=== PATIENT | female | born 1980 | race Hispanic/Latino ===

== ENCOUNTER 2020-02-23 12:18 | Outpatient (CLI) | payer OTHER ==
--- NOTE | 2020-02-23 13:36 | MMO ---
Bilateral MAMMO Bilat Screen [facility]. CLINICAL HISTORY: Patient is 39 years old and is seen for screening. The patient has the following family history of breast cancer: maternal grandmother, 60's. VIEWS: The views performed were: bilateral craniocaudal with tomosynthesis and bilateral mediolateral oblique with tomosynthesis. This study has been interpreted with the assistance of computer-aided detection. MAMMOGRAM FINDINGS: There are scattered fibroglandular densities. There are no suspicious masses, suspicious calcifications, or new areas of architectural distortion. IMPRESSION: THERE IS NO MAMMOGRAPHIC EVIDENCE OF MALIGNANCY. A ROUTINE FOLLOW-UP MAMMOGRAM IN 1 YEAR IS RECOMMENDED. THE RESULTS OF THIS EXAM WERE SENT TO THE PATIENT. ACR BI-RADS Category 1 - Negative MAMMOGRAPHY NOTE: 1. A negative mammogram report should not delay a biopsy if a dominant of clinically suspicious mass is present. 2. Approximately 10% to 15% of breast cancers are not detected by mammography. 3. Adenosis and dense breasts may obscure an underlying neoplasm. Reported by: LILIA ALMANZA MD Electonically Signed: [id number]
== END 2020-02-23 12:19 | disposition home or self-care (01) ==
LOC: BICMAMMO 12:18
PROVIDERS: ATTEND Family Medicine
DX: Z12.31 Encounter for screening mammogram for malignant neoplasm of breast (principal); Z80.3 Family history of malignant neoplasm of breast
CPT/HCPCS: 77063; 77067

== ENCOUNTER 2022-10-27 08:35 | Inpatient (IN) | payer BC ==
[2022-10-27] MEDS ORDERED: Iopamidol-370 76% 500 ML MDV (1 ML CHARGE) ONE (09:05)
[2022-10-27] MEDS ORDERED: Morphine 4 MG/ML VIAL ONE (09:12)
[2022-10-27] MEDS ORDERED: Ondansetron PF 4 MG/2 ML Vial ONE (09:12)
[2022-10-27 09:35] LABS: #Basophils 0.1 thou/uL (0.0-0.2); #Eosinphils 0.4 thou/uL (0.0-0.7); #Lymphocytes 2.9 thou/uL (1.20-3.40); #Monocytes 0.6 thou/uL (0.11-0.59); #Neutrophils 7.5 thou/uL (1.40-6.50); %Basophils 0.6 % (0.0-1.0); %Eosinophils 3.8 % (0.0-10.0); %Monocytes 5.4 % (0.0-10.0); %Neutrophils 65.2 % (42.0-75.0); Hemoglobin 14.6 g/dL (12.0-16.0); Mean Corpuscular HGB CONC 33.4 g/dL (32.0-36.0); Mean Corpuscular Hemoglobin 30.9 pg (27.0-31.0); Mean Corpuscular Volume 92.5 fl (78.0-98.0); Mean Platelet Volume 9.2 fL (7.4-10.4); Platelet Count 289 10x3/uL (130-400); RBC Distribution Width 11.9 % (11.5-14.5); Red Blood Cell (RBC) Count 4.74 mill/uL (4.20-5.40); White Blood Cell (WBC) Count 11.5 10x3/uL (4.8-10.8)
[2022-10-27 09:50] LABS: ALT (SGPT) 36 U/L (8-55); AST (SGOT) 29 U/L (5-34); Alkaline Phosphatase 60 U/L (40-110); Anion Gap 13 mmol/L (10-20); BHCG - Serum Negative (NEGATIVE); BUN (Urea Nitrogen) 9 mg/dL (7.0-18.7); Bilirubin, Total 0.4 mg/dL (0.2-1.2); Calc. Creatinine Clearance 0 mL/min (70-130); Calcium 9.4 mg/dL (7.8-10.44); Carbon Dioxide 26 mmol/L (22-29); Chloride 102 mmol/L (98-107); Estimated GFR 105; Globulin 3.5 g/dL (2.4-3.5); Glucose 143 mg/dL (70-105); Lipase 16 U/L (8-78); Magnesium 1.9 mg/dL (1.6-2.6); Potassium 4.2 mmol/L (3.5-5.1); Pregs Control Background? CLEAR/WHITE (CLR/WHITE); Pregs Control Bar Appear? YES (CONTROL BAR); Protein, Total 7.5 g/dL (6.0-8.3); Sodium 137 mmol/L (136-145)
[2022-10-27] MEDS ORDERED: Piperacillin/Tazobactam 4.5 GM VIAL ONE (12:46)
[2022-10-27] MEDS ORDERED: Morphine 2 MG/ML VIAL ONE (13:01)
[2022-10-27 15:49] VITALS: BMI 38.0
[2022-10-27] MEDS: Ondansetron PF 4 MG/2 ML Vial IVP PRN (16:55)
[2022-10-27] MEDS: Piperacillin/Tazobactam 3.375 GM in Sodium Chloride 0.9% 100 ML IVPB SCH (16:55)
[2022-10-27] MEDS: Potassium Chloride 20 MEQ in Lactated Ringer's 1,000 ML IV SCH (16:55)
[2022-10-27] MEDS: Acetaminophen 325 MG TAB PO PRN (16:55)
[2022-10-27] MEDS ORDERED: Piperacillin/Tazobactam 3.375 GM in Sodium Chloride 0.9% 100 ML IVPB SCH (18:00)
[2022-10-27] MEDS: Famotidine/PF 20 mg/2ml Vial SLOW IVP SCH (20:32)
[2022-10-28] MEDS: Piperacillin/Tazobactam 3.375 GM in Sodium Chloride 0.9% 100 ML IVPB SCH ×2 (00:53→08:49)
[2022-10-28] MEDS: Morphine 4 MG/ML VIAL SLOW IVP PRN ×2 (00:55→15:44)
[2022-10-28] MEDS: Potassium Chloride 20 MEQ in Lactated Ringer's 1,000 ML IV SCH ×2 (04:36→18:06)
[2022-10-28 07:21] LABS: #Basophils 0.1 thou/uL (0.0-0.2); #Eosinphils 0.5 thou/uL (0.0-0.7); #Lymphocytes 3.5 thou/uL (1.20-3.40); #Monocytes 0.7 thou/uL (0.11-0.59); %Basophils 0.7 % (0.0-1.0); %Lymphocytes 29.6 % (21.0-51.0); %Monocytes 6.1 % (0.0-10.0); %Neutrophils 59.7 % (42.0-75.0); Hemoglobin 13.1 g/dL (12.0-16.0); Mean Corpuscular HGB CONC 32.6 g/dL (32.0-36.0); Mean Corpuscular Hemoglobin 29.9 pg (27.0-31.0); Mean Corpuscular Volume 91.9 fl (78.0-98.0); Mean Platelet Volume 8.6 fL (7.4-10.4); Platelet Count 305 10x3/uL (130-400); RBC Distribution Width 11.7 % (11.5-14.5); Red Blood Cell (RBC) Count 4.37 mill/uL (4.20-5.40); White Blood Cell (WBC) Count 11.7 10x3/uL (4.8-10.8)
[2022-10-28 08:02] LABS: Anion Gap 13 mmol/L (10-20); BUN (Urea Nitrogen) 8 mg/dL (7.0-18.7); Calc. Creatinine Clearance 168 mL/min (70-130); Calcium 8.3 mg/dL (7.8-10.44); Carbon Dioxide 23 mmol/L (22-29); Chloride 104 mmol/L (98-107); Estimated GFR 112; Glucose 94 mg/dL (70-105); Potassium 3.8 mmol/L (3.5-5.1); Sodium 136 mmol/L (136-145)
[2022-10-28] MEDS: Famotidine/PF 20 mg/2ml Vial SLOW IVP SCH ×2 (08:48→19:59)
[2022-10-28] MEDS: Ondansetron PF 4 MG/2 ML Vial IVP PRN (14:22)
[2022-10-28] MEDS ORDERED: metroNIDAZOLE 500 MG TAB PO SCH (15:00)
[2022-10-28] MEDS: Clindamycin 150 MG CAP PO SCH ×2 (18:05→22:40)
[2022-10-28] MEDS: Ciprofloxacin 500 MG TAB PO SCH (19:54)
[2022-10-29] MEDS: Potassium Chloride 20 MEQ in Lactated Ringer's 1,000 ML IV SCH (03:58)
[2022-10-29] MEDS: Clindamycin 150 MG CAP PO SCH (05:13)
[2022-10-29] MEDS: Ciprofloxacin 500 MG TAB PO SCH (05:13)
[2022-10-29 06:33] LABS: #Basophils 0.1 thou/uL (0.0-0.2); #Eosinphils 0.4 thou/uL (0.0-0.7); #Monocytes 0.7 thou/uL (0.11-0.59); #Neutrophils 6.7 thou/uL (1.40-6.50); %Basophils 0.6 % (0.0-1.0); %Eosinophils 3.8 % (0.0-10.0); %Lymphocytes 27.8 % (21.0-51.0); %Monocytes 6.4 % (0.0-10.0); %Neutrophils 61.5 % (42.0-75.0); Hemoglobin 12.1 g/dL (12.0-16.0); Mean Corpuscular HGB CONC 31.7 g/dL (32.0-36.0); Mean Corpuscular Hemoglobin 29.5 pg (27.0-31.0); Mean Corpuscular Volume 92.9 fl (78.0-98.0); Mean Platelet Volume 8.6 fL (7.4-10.4); Platelet Count 288 10x3/uL (130-400); RBC Distribution Width 11.7 % (11.5-14.5); Red Blood Cell (RBC) Count 4.11 mill/uL (4.20-5.40); White Blood Cell (WBC) Count 10.9 10x3/uL (4.8-10.8)
[2022-10-29 08:27] VITALS: BP 118/58; TEMP 99.2
[2022-10-29] MEDS: Famotidine/PF 20 mg/2ml Vial SLOW IVP SCH (08:41)
[2022-10-29] MEDS: Acetaminophen 325 MG TAB PO PRN (08:42)
== END 2022-10-29 14:42 | disposition home or self-care (01) | DRG 391 ==
LOC: ERS 08:35 → ERHOLD 12:27 → T4-B 14:05
PROVIDERS: ADMIT Family Medicine; ATTEND Family Medicine
DX: K52.89 Other specified noninfective gastroenteritis and colitis (principal); K63.1 Perforation of intestine (nontraumatic); J45.909 Unspecified asthma, uncomplicated; E66.9 Obesity, unspecified; Z88.8 Allergy status to other drugs, medicaments and biological substances; Z79.899 Other long term (current) drug therapy; Z68.38 Body mass index [BMI] 38.0-38.9, adult; Z98.51 Tubal ligation status; Z90.89 Acquired absence of other organs; Z90.49 Acquired absence of other specified parts of digestive tract
CPT/HCPCS: 36415; 74177; 80048; 80053; 83690; 83735; 84703; 85025; 87040; 93005; J2270; J2272; J2405; J2543; J3480; J3490; J7120; Q9967; S0028

== ENCOUNTER 2022-11-03 10:54 | Outpatient (CLI) | payer BC | END 2022-11-03 10:55 | disposition home or self-care (01) | LOC: BICMAMMO 10:54 | PROVIDERS: ATTEND Nurse Practitioner Family | DX: Z12.31 Encounter for screening mammogram for malignant neoplasm of breast (principal) | CPT/HCPCS: 77063; 77067 ==

== ENCOUNTER 2025-01-24 08:14 | Outpatient (CLI) | payer BC | END 2025-01-24 08:15 | disposition home or self-care (01) | LOC: BICMAMMO 08:14 | PROVIDERS: ATTEND Family Medicine | DX: Z12.31 Encounter for screening mammogram for malignant neoplasm of breast (principal); Z80.3 Family history of malignant neoplasm of breast | CPT/HCPCS: 77063; 77067 ==